=== PATIENT | female | born 1990 | race Caucasian/White ===

== ENCOUNTER 2018-05-16 11:58 | Emergency (ER) | payer OTHER ==
[~2018-05-16] VITALS: Ht 172.7 cm; Wt 63.7 kg
[2018-05-16 12:14] VITALS: BP 121/82
[2018-05-16] MEDS ORDERED: CEFTRIAXONE 1,000 MG ONE (13:27)
[2018-05-16] MEDS ORDERED: AZITHROMYCIN 250 MG TABLET ONE (13:27)
[2018-05-16] MEDS ORDERED: CEFTRIAXONE 1,000 MG IM ONE (13:30)
[2018-05-17] MEDS ORDERED: AZITHROMYCIN 500 MG TABLET PO ONE (09:00)
== END 2018-05-16 13:55 | disposition home or self-care (01) ==
LOC: ED 13:49
DX: T76.21XA Adult sexual abuse, suspected, initial encounter (principal)
CPT/HCPCS: 96372; 99283; J0696

== ENCOUNTER 2018-11-28 10:28 | Emergency (ER) | payer OTHER ==
[~2018-11-28] VITALS: Ht 167.6 cm; Wt 63.6 kg
--- NOTE | 2018-11-28 10:58 | NUR ---
UA COLLECTED AND WALKED TO THE LAB.
--- NOTE | 2018-11-28 11:15 | NUR ---
PT MEDICATED ORDERED. GERALDO PAC AT BEDSIDE FOR PELVIC EXAM.
[2018-11-28 11:22] LABS: HCG UR SG 1.027 (1.003-1.030)
[2018-11-28 11:36] LABS: CULTURE INDICATED? YES; MICROSCOPIC INDICATED
--- NOTE | 2018-11-28 12:24 | NUR ---
CHART UP FOR MD RECHECK. PT AWARE.
[2018-11-28 13:25] VITALS: BP 123/67
== END 2018-11-28 13:29 | disposition home or self-care (01) ==
LOC: ED 13:15
DX: N30.00 Acute cystitis without hematuria (principal); L01.01 Non-bullous impetigo
CPT/HCPCS: 81001; 81025; 87077; 87086; 87186; 99283

== ENCOUNTER 2019-03-14 11:57 | Emergency (ER) | payer OTHER ==
[~2019-03-14] VITALS: Ht 172.7 cm; Wt 75.0 kg
[2019-03-14 13:43] VITALS: BP 136/78
== END 2019-03-14 15:56 | disposition other institution (70) ==
LOC: ED 13:36
DX: F15.951 Other stimulant use, unspecified with stimulant-induced psychotic disorder with hallucinations (principal); F41.9 Anxiety disorder, unspecified; F20.9 Schizophrenia, unspecified
CPT/HCPCS: 36415; 80053; 80307; 84703; 85025; 99284

== ENCOUNTER 2019-03-14 14:30 | Inpatient (IN) | payer OTHER ==
[~2019-03-14] VITALS: Ht 172.7 cm; Wt 71.3 kg
[~2019-03-14 14:30] MED LIST: ATOM40CA PO; BUSP5TAB2 PO; MELA3TAB62 PO; RISP3TAB3 PO
[2019-03-14] MEDS ORDERED: BISACODYL 10 MG SUPP PR PRN (15:00)
[2019-03-14] MEDS ORDERED: POLYETHYLENE GLYCOL 17 GM PACKET PO PRN (15:00)
[2019-03-14] MEDS ORDERED: ONDANSETRON ODT 4 MG PO PRN (15:00)
[2019-03-14] MEDS ORDERED: DOCUSATE 100 MG CAPSULE PO PRN (15:00)
[2019-03-14 16:10] VITALS: BP 116/78
[2019-03-14] MEDS: PLEASE ENTER HEIGHT AND WEIGHT MC SCH (16:30)
[2019-03-14] MEDS ORDERED: NICOTINE 14MG/24 HR PATCH.TD24 TD SCH (17:00)
[2019-03-14] MEDS: BUSPIRONE 5 MG TABLET PO SCH ×2 (17:22→20:29)
[2019-03-14 19:40] VITALS: BP 106/66
[2019-03-14] MEDS: PRAZOSIN 2 MG CAPSULE PO SCH (20:29)
[2019-03-14] MEDS: MELATONIN 3 MG TABLET PO SCH (20:29)
[2019-03-15] MEDS: PLEASE ENTER HEIGHT AND WEIGHT MC SCH (00:30)
[2019-03-15 05:14] LABS: HCT (SEDRATE) 39.4 % (34.6-47.8)
[2019-03-15 05:29] LABS: CULTURE INDICATED? YES; MICROSCOPIC INDICATED
[2019-03-15 05:52] LABS: CHOL/HDL RATIO 3.2; FREE T4 (FREE THYROXINE) 1.03 ng/dL (0.76-1.46); LDL/HDL RATIO 1.8 (0.5-3.0)
[2019-03-15 07:27] VITALS: BP 119/78
[2019-03-15] MEDS: BUSPIRONE 5 MG TABLET PO SCH ×3 (08:38→20:18)
[2019-03-15] MEDS ORDERED: PALIPERIDONE 6 MG TAB.ER.24 PO SCH (09:00)
[2019-03-15] MEDS: ACETAMINOPHEN 325 MG TABLET PO PRN ×2 (09:45→14:45)
[2019-03-15] MEDS: ZIPRASIDONE 20MG CAPSULE PO SCH ×2 (14:42→20:19)
[2019-03-15] MEDS: NICOTINE 7 MG/24 HR PATCH.TD24 TD SCH (15:55)
[2019-03-15] MEDS: HYDROXYZINE PAMOATE 50MG CAP PO PRN (17:01)
[2019-03-15 19:30] VITALS: BP 114/70
[2019-03-15] MEDS: PRAZOSIN 2 MG CAPSULE PO SCH (20:18)
[2019-03-15] MEDS: MELATONIN 3 MG TABLET PO SCH (20:18)
[2019-03-15] MEDS: TOPIRAMATE 25 MG TABLET PO SCH (20:18)
[2019-03-16] MEDS: HYDROXYZINE PAMOATE 50MG CAP PO PRN ×2 (06:11→14:16)
[2019-03-16 07:23] VITALS: BP 114/83
[2019-03-16] MEDS: TOPIRAMATE 25 MG TABLET PO SCH ×2 (08:49→20:33)
[2019-03-16] MEDS: BUSPIRONE 5 MG TABLET PO SCH ×3 (08:49→20:33)
[2019-03-16] MEDS: ZIPRASIDONE 20MG CAPSULE PO SCH ×2 (08:49→20:34)
[2019-03-16] MEDS: NICOTINE 7 MG/24 HR PATCH.TD24 TD SCH (08:51)
[2019-03-16 19:32] VITALS: BP 127/84
[2019-03-16] MEDS: PRAZOSIN 2 MG CAPSULE PO SCH (20:34)
[2019-03-16] MEDS: MELATONIN 3 MG TABLET PO SCH (20:34)
[2019-03-16] MEDS: NITROFURANTOIN (MACROBID) 100 MG CAPSULE PO SCH (20:57)
[2019-03-17] MEDS: HYDROXYZINE PAMOATE 50MG CAP PO PRN ×3 (05:43→18:04)
[2019-03-17 07:27] VITALS: BP_SYST 111; BP_SYST 115; BP_DIAS 72
[2019-03-17] MEDS: NITROFURANTOIN (MACROBID) 100 MG CAPSULE PO SCH ×2 (08:19→20:50)
[2019-03-17] MEDS: ZIPRASIDONE 20MG CAPSULE PO SCH ×2 (08:20→20:47)
[2019-03-17] MEDS: TOPIRAMATE 25 MG TABLET PO SCH ×2 (08:21→20:47)
[2019-03-17] MEDS: BUSPIRONE 5 MG TABLET PO SCH ×3 (08:21→20:47)
[2019-03-17] MEDS: NICOTINE 7 MG/24 HR PATCH.TD24 TD SCH (08:25)
[2019-03-17] MEDS ORDERED: STRATTERA 40 MG PO SCH ×2 (09:00→21:00)
[2019-03-17] MEDS: STRATTERA 40 MG HOMEMEDPO SCH (13:44)
[2019-03-17 14:02] VITALS: BP 119/86
[2019-03-17 19:39] VITALS: BP 109/74
[2019-03-17] MEDS: MELATONIN 3 MG TABLET PO SCH (20:47)
[2019-03-17] MEDS: PRAZOSIN 2 MG CAPSULE PO SCH (20:48)
[2019-03-18] MEDS: HYDROXYZINE PAMOATE 50MG CAP PO PRN ×2 (06:31→12:52)
[2019-03-18 07:14] VITALS: BP 102/65
[2019-03-18] MEDS: NITROFURANTOIN (MACROBID) 100 MG CAPSULE PO SCH ×2 (08:08→20:34)
[2019-03-18] MEDS: ZIPRASIDONE 20MG CAPSULE PO SCH ×2 (08:09→20:33)
[2019-03-18] MEDS: BUSPIRONE 5 MG TABLET PO SCH ×3 (08:09→20:34)
[2019-03-18] MEDS: NICOTINE 7 MG/24 HR PATCH.TD24 TD SCH (08:09)
[2019-03-18] MEDS: STRATTERA 40 MG HOMEMEDPO SCH ×2 (08:09→12:12)
[2019-03-18] MEDS: TOPIRAMATE 25 MG TABLET PO SCH ×2 (08:09→20:34)
[2019-03-18 09:36] VITALS: BP 120/77
[2019-03-18 19:47] VITALS: BP 100/66
[2019-03-18] MEDS: PRAZOSIN 2 MG CAPSULE PO SCH (20:33)
[2019-03-18] MEDS: MELATONIN 3 MG TABLET PO SCH (20:33)
[2019-03-19 07:40] VITALS: BP 108/72
[2019-03-19] MEDS: NITROFURANTOIN (MACROBID) 100 MG CAPSULE PO SCH ×2 (08:23→20:17)
[2019-03-19] MEDS: BUSPIRONE 5 MG TABLET PO SCH ×3 (08:24→20:17)
[2019-03-19] MEDS: ZIPRASIDONE 20MG CAPSULE PO SCH ×2 (08:24→20:17)
[2019-03-19] MEDS: HYDROXYZINE PAMOATE 50MG CAP PO PRN ×2 (08:24→17:17)
[2019-03-19] MEDS: STRATTERA 40 MG HOMEMEDPO SCH ×2 (08:24→12:50)
[2019-03-19] MEDS: TOPIRAMATE 25 MG TABLET PO SCH ×2 (08:24→20:17)
[2019-03-19] MEDS: NICOTINE 7 MG/24 HR PATCH.TD24 TD SCH (08:24)
[2019-03-19 16:31] VITALS: BP 117/79
[2019-03-19 19:47] VITALS: BP 109/71
[2019-03-19] MEDS: PRAZOSIN 2 MG CAPSULE PO SCH (20:17)
[2019-03-19] MEDS: MELATONIN 3 MG TABLET PO SCH (20:17)
[2019-03-20 05:50] VITALS: BP 119/87
[2019-03-20 07:30] VITALS: BP 107/73
[2019-03-20] MEDS: ZIPRASIDONE 20MG CAPSULE PO SCH ×2 (08:22→20:08)
[2019-03-20] MEDS: BUSPIRONE 5 MG TABLET PO SCH ×3 (08:22→20:08)
[2019-03-20] MEDS: STRATTERA 40 MG HOMEMEDPO SCH ×2 (08:23→12:06)
[2019-03-20] MEDS: HYDROXYZINE PAMOATE 50MG CAP PO PRN ×2 (08:23→16:51)
[2019-03-20] MEDS: TOPIRAMATE 25 MG TABLET PO SCH ×2 (08:23→20:07)
[2019-03-20] MEDS: NICOTINE 7 MG/24 HR PATCH.TD24 TD SCH (08:24)
[2019-03-20] MEDS: NITROFURANTOIN (MACROBID) 100 MG CAPSULE PO SCH ×2 (08:44→20:07)
[2019-03-20] MEDS ORDERED: MELA3TAB56 PO (16:45)
[2019-03-20] MEDS ORDERED: PRAZ2CAP2 PO (16:45)
[2019-03-20] MEDS ORDERED: TOPI25TA32 PO (16:45)
[2019-03-20] MEDS ORDERED: NICO-485 TD (16:45)
[2019-03-20] MEDS ORDERED: ZIPR20CA2 PO (16:45)
[2019-03-20] MEDS ORDERED: NITR100C6 PO (16:45)
[2019-03-20] MEDS ORDERED: BUSP5TAB2 PO (16:45)
[2019-03-20] MEDS ORDERED: CLON0.1T22 PO (16:45)
[2019-03-20 20:07] VITALS: BP 114/72
[2019-03-20] MEDS: MELATONIN 3 MG TABLET PO SCH (20:07)
[2019-03-20] MEDS: PRAZOSIN 2 MG CAPSULE PO SCH (20:08)
[2019-03-21] MEDS: HYDROXYZINE PAMOATE 50MG CAP PO PRN ×2 (00:17→06:16)
[2019-03-21 07:31] VITALS: BP 105/69
[2019-03-21] MEDS: STRATTERA 40 MG HOMEMEDPO SCH (08:00)
[2019-03-21] MEDS: BUSPIRONE 5 MG TABLET PO SCH (08:45)
[2019-03-21] MEDS: NICOTINE 7 MG/24 HR PATCH.TD24 TD SCH (08:45)
[2019-03-21] MEDS: NITROFURANTOIN (MACROBID) 100 MG CAPSULE PO SCH (08:45)
[2019-03-21] MEDS: TOPIRAMATE 25 MG TABLET PO SCH (08:45)
[2019-03-21] MEDS: ZIPRASIDONE 20MG CAPSULE PO SCH (08:46)
[2019-03-21 08:53] VITALS: BP 116/74
== END 2019-03-21 10:17 | disposition home or self-care (01) | DRG 885 ==
LOC: 3E 16:10
PROVIDERS: ADMIT Psychiatry & Neurology Psychosomatic Medicine; ATTEND Psychiatry & Neurology Psychosomatic Medicine
DX: F25.0 Schizoaffective disorder, bipolar type (principal); R45.851 Suicidal ideations; F41.0 Panic disorder [episodic paroxysmal anxiety]; F41.1 Generalized anxiety disorder; G47.00 Insomnia, unspecified; G43.909 Migraine, unspecified, not intractable, without status migrainosus; Z72.0 Tobacco use
CPT/HCPCS: 36415; 71045; 80061; 81001; 82140; 82607; 84439; 84443; 85651; 86592; 87077; 87086; 87186; 93005; 99285